=== PATIENT | male | born 1995 | race Caucasian/White ===

== ENCOUNTER 2019-07-21 22:09 | Emergency (ER) | payer OTHER ==
[~2019-07-21] VITALS: Ht 182.9 cm; Wt 108.0 kg
[2019-07-21] MEDS ORDERED: IBU-200200 MG PO (23:04)
[2019-07-21] MEDS ORDERED: NAPROXEN250 MG PO (23:04)
[2019-07-21] MEDS ORDERED: PENICILLIN V P500 MG PO (23:57)
== END 2019-07-22 00:08 | disposition home or self-care (01) ==
LOC: ED 22:09
DX: K08.59 Other unsatisfactory restoration of tooth (principal); K08.89 Other specified disorders of teeth and supporting structures; F17.200 Nicotine dependence, unspecified, uncomplicated
CPT/HCPCS: 99282

== ENCOUNTER 2019-11-18 17:28 | Emergency (ER) | payer OTHER ==
[~2019-11-18] VITALS: Ht 180.3 cm; Wt 104.4 kg
[~2019-11-18 17:28] MED LIST: IBU-200200 MG PO; NAPROXEN250 MG PO; PENICILLIN V P500 MG PO
[2019-11-18] MEDS ORDERED: NORCO 5-325 TA1 EACH PO (18:38)
[2019-11-18] MEDS ORDERED: NAPROSYN500 MG PO (18:38)
== END 2019-11-18 18:50 | disposition home or self-care (01) ==
LOC: ED 17:28
DX: S59.202A Unspecified physeal fracture of lower end of radius, left arm, initial encounter for closed fracture (principal); S52.612A Displaced fracture of left ulna styloid process, initial encounter for closed fracture; F17.200 Nicotine dependence, unspecified, uncomplicated; W17.89XA Other fall from one level to another, initial encounter
CPT/HCPCS: 29125; 73110; 99283-25

== ENCOUNTER 2023-01-31 08:39 | Emergency (ER) | payer OTHER ==
[~2023-01-31] VITALS: Ht 182.9 cm; Wt 112.5 kg
[~2023-01-31 08:39] MED LIST changes: +NAPROSYN500 MG PO; +NORCO 5-325 TA1 EACH PO
[2023-01-31 09:02] LABS: BASOPHILS 0.1 % (0-2); EOSINOPHILS 0.8 % (0-6); HEMATOCRIT 49.7 % (35.0-50.0); LYMPHOCYTES 3.5 % (24-44); MCH 30.8 (27-36); MCHC 34.1 g/dl (30-36); MCV 90.1 fl (81-99); MONOCYTES 5.6 % (0-12); PLATELET COUNT 320 K/uL (140-440); RBC 5.51 M/ul (4.3-5.7)
[2023-01-31 09:11] LABS: ALBUMIN 4.4 g/dL (3.4-5.0); ALBUMIN/GLOBULIN RATIO 1.22 (1.1-2.4); ANION GAP 18.1 (7-21); BILIRUBIN, TOTAL 0.6 ng/dL (0.2-1.0); BUN/CREATININE RATIO 14.06 (6.0-28.6); CALCIUM 9.2 mg/dL (8.5-10.1); CREATININE, SERUM 1.28 mg/dL (0.70-1.30); POTASSIUM 4.1 mmol/L (3.5-5.1)
[2023-01-31] MEDS ORDERED: ONDANSETRON ODT8 MG PO (12:14)
[2023-01-31 12:20] VITALS: BP 116/60
== END 2023-01-31 12:22 | disposition home or self-care (01) ==
LOC: ED 08:39
PROVIDERS: Emergency Medicine
DX: K52.9 Noninfective gastroenteritis and colitis, unspecified (principal); F17.200 Nicotine dependence, unspecified, uncomplicated
CPT/HCPCS: 36415; 76705; 80053; 83690; 85025; 96361; 96374; 96375; 99284-25; J1170; J2405; J7030

== ENCOUNTER 2024-04-24 23:55 | Emergency (ER) | payer SELFPAY ==
[~2024-04-24] VITALS: Ht 182.9 cm; Wt 115.0 kg
[~2024-04-24 23:55] MED LIST changes: +ONDANSETRON ODT8 MG PO
[2024-04-25] MEDS ORDERED: TETRACAINE HCL 0.5% 4 ML BTL ONE (00:11)
[2024-04-25] MEDS ORDERED: TETRACAINE HCL 0.5% 4 ML BTL OU SCH (00:15)
[2024-04-25] MEDS ORDERED: OXYCODONE/APAP 10/325 TAB PO ONE (00:30)
[2024-04-25] MEDS ORDERED: PERCOCET 5-3251 EACH PO ×2 (01:23→01:31)
[2024-04-25] MEDS ORDERED: OXYCODONE/ACETAMINOPHEN 1 TAB HOME.PACK PO ONE (01:30)
[2024-04-25] MEDS ORDERED: ERYTHROMYCIN 3.5 GM HOME.PACK OP ONE (01:30)
[2024-04-25 01:52] VITALS: BP 131/87
== END 2024-04-25 01:53 | disposition home or self-care (01) ==
LOC: ED 23:55
DX: H16.133 Photokeratitis, bilateral (principal); F17.200 Nicotine dependence, unspecified, uncomplicated
CPT/HCPCS: 99283